=== PATIENT | male | born 1995 | race American Indian/Alaskan Native ===

== ENCOUNTER 2016-07-13 00:49 | Emergency (ER) | payer SELFPAY ==
--- NOTE | 2016-07-13 08:13 | ER ---
ADMIT: 07/13/2016 RM/LOC: ER [facility] MR#: [id number] [facility] [address] [place] [place] [facility] [place] [address] Emergency Room Report SEX: M AGE: 20 : 1995 DATE: 07/13/2016 The patient is a 20-year-old male in police custody, refusing all care, belligerent, abusive to nursing and medical staff, ordered CT scan which he declined, released in police custody. Marty Campbell MD/ tom JOB #: [id number] CC: Marty Campbell MD, Attending Physician Jay Mccullough MD, Family Physician Jay Mccullough MD
== END 2016-07-13 01:15 | disposition home or self-care (01) ==
LOC: ER 00:49
DX: S00.81XA Abrasion of other part of head, initial encounter (principal); F10.129 Alcohol abuse with intoxication, unspecified; Z79.899 Other long term (current) drug therapy; W22.8XXA Striking against or struck by other objects, initial encounter